=== PATIENT | female | born 1985 | race Caucasian/White ===

== ENCOUNTER 2021-03-18 15:20 | Outpatient (CLI) | payer BC, SELFPAY ==
--- NOTE | 2021-03-18 | DI.RAD_ITS ---
Exam(s) XR KNEE RT 3V AP,LAT,CARRIE EXAM: XR KNEE RT 3V AP,LAT,CARRIE CLINICAL HISTORY: RT KNEE PAIN, M25.561. TECHNIQUE: 2D digital imaging was performed of the right knee. Three views obtained. AP, lateral an d PA tunnel views were obtained. COMPARISON: No exams were available for comparison FINDINGS: BONES: No acute fracture is present. No bony destructive lesion is seen. JOINTS: The knee is normally aligned. No joint effusion is seen. There is periarticular spurring in t he medial femoral tibial joint and the patellofemoral joint. SOFT TISSUE: Normal. IMPRESSION: 1. No acute fracture or dislocation. 2. Mild osteoarthritis of the knee. DATA REPOSITORY: RADIATION DOSE DELIVERED:
== END 2021-03-18 15:40 ==
PROVIDERS: Visit Provider Physician Assistant Medical
DX: M25.561 Pain in right knee (principal); M17.11 Unilateral primary osteoarthritis, right knee
CPT/HCPCS: 73562